=== PATIENT | male | born 1990 | race Caucasian/White ===

== ENCOUNTER 2017-12-18 21:42 | Emergency (ER) | payer SELFPAY ==
[~2017-12-18 21:42] MED LIST: CLIN1CAP6 PO; HYDR-3533 PO; NAPR500 PO
[2017-12-18 21:49] VITALS: BP 154/80; PULSE 100; RESP 20; TEMP 98.8; O2SAT 87; O2SAT 97
[2017-12-18] MEDS ORDERED: AZIT250T3 PO (22:15)
--- NOTE | 2017-12-18 22:16 | PD ---
HPI Chief Complaint: Cold / Flu Symptoms Time Seen by Provider: 22:04 Travel History International Travel<30 days: No Contact w/Intl Traveler<30days: No Traveled to known affect area: No History of Present Illness HPI This is a 27-year-old male here with productive cough 8 days. He reports he had what he felt was a cold over a week ago. Symptoms resolved with the exception of a cough and he now has colored sputum. No fever chills. Symptom severity is moderate. No aggravating or alleviating factors. PFSH Past Medical History Medical History: Denies Significant Hx Anxiety: Yes (PANIC DISORDERS) Depression: Yes Cardiovascular Problems: No Diminished Hearing: No Gastrointestinal Disorders: Yes Genitourinary: No Musculoskeletal: No Neurologic: No Respiratory: No Immunizations Current: Yes Tetanus Vaccination: > 5 Years Influenza Vaccination: No Past Surgical History Surgical History: No Previous Surgery Social History Alcohol Use: Yes (2 X WEEK) Tobacco Use: Yes ("OCCASIONAL") Substance Use: No Allergies-Medications (Allergen,Severity, Reaction): Coded Allergies: penicillin G (Unverified Allergy, Severe, Chest Pain, 12/18/17) ITCHING Reported Meds & Prescriptions Reported Meds & Active Scripts Active Azithromycin 250 Mg Tab 250 Mg PO DIRECTED Take 2 tabs (500 mg) on day 1 then 1 tab daily x 4 days. Review of Systems Except as stated in HPI: all other systems reviewed are Neg General / Constitutional: No: Fever Eyes: No: Visual changes HENT: No: Headaches Cardiovascular: No: Chest Pain or Discomfort Respiratory: Positive: Cough Gastrointestinal: No: Abdominal Pain Genitourinary: No: Dysuria Musculoskeletal: No: Pain Skin: No Rash Neurologic: No: Weakness Physical Exam Narrative GENERAL: Alert and well-appearing 27-year-old male SKIN: Warm and dry. HEAD: Normocephalic. EYES: No scleral icterus. No injection or drainage. Ear/nose/throat: Mild pharyngeal erythema without tonsillar hypertrophy or exudate. Uvula is midline. Airways patent. NECK: Supple CARDIOVASCULAR: Regular rate and rhythm. No murmur appreciated RESPIRATORY: Breath sounds equal bilaterally. No accessory muscle use. Rhonchorous cough GASTROINTESTINAL: Abdomen soft, non-tender, nondistended. MUSCULOSKELETAL: No cyanosis, or edema. BACK: No CVA tenderness. Data Data Last Documented VS Vital Signs Date Time Temp Pulse Resp B/P (MAP) Pulse Ox O2 Delivery O2 Flow Rate FiO2 12/18/17 22:04 Room Air 12/18/17 21:49 98.8 100 20 154/80 (104) 97 MDM Medical Decision Making Medical Screen Exam Complete: Yes Emergency Medical Condition: Yes Differential Diagnosis Bronchitis, pneumonia, influenza Narrative Course 27-year-old male here with male here with a productive cough for 8 days. His vital signs are stable. He is nontoxic-appearing. He does have a rhonchorous cough on exam. Will be treated for bronchitis Diagnosis Primary Impression: Bronchitis Referrals: Primary Care Physician Additional Instructions: Antibiotics as directed. Tylenol and ibuprofen as needed for pain. Stay well hydrated. Follow-up with her primary doctor Scripts Azithromycin (Azithromycin) 250 Mg Tab 250 MG PO DIRECTED for Infection, #6 TAB 0 Refills Take 2 tabs (500 mg) on day 1 then 1 tab daily x 4 days. Prov: Cira Alonzo 12/18/17 Disposition: 01 DISCHARGE HOME Condition: Stable Cira Alonzo Dec 18, 2017 22:16
== END 2017-12-18 22:28 | disposition home or self-care (01) ==
LOC: PHEFT 21:42
DX: J40 Bronchitis, not specified as acute or chronic (principal)
CPT/HCPCS: 99283